=== PATIENT | female | born 2005 | race Caucasian/White ===

== ENCOUNTER 2025-01-08 06:24 | Outpatient (REF) | payer BC, SELFPAY ==
--- NOTE | ~2025-01-08 | US_ITS ---
EXAMINATION: US PELVIS CLINICAL INFORMATION: Lower abdominal pain COMPARISON: None available. TECHNIQUE: Ultrasound of the pelvis is performed using both transabdominal and transvaginal transducers along with Doppler. Transvaginal imaging is performed due to inadequate visualization transabdominally. FINDINGS: Uterus: The uterus is anteverted , anteflexed and measures 7.6 x 3 0.90, 4.7 cm . The double wall endometrial thickness is 0.17 cm. The uterus is smooth in contour and has normal myometrial echogenicity. No visible fibroid. Adnexa: Both ovaries are visualized. Right ovary measures 4.4 x 1.8 x 4.7 cm cm. There is a large midline anechoic cyst measuring 11.4 x 9.2 x 10.1 cm. The exact origin of right ribs and left ovaries not known. Left ovary measures 3.5 x 2.5 x 2.3 . There is a midline anechoic cyst. There is normal color flow to the adnexa. There is no ovarian torsion. There is no pelvic ascites or fluid collection. US/US pelvic complete IMPRESSION: Large midline anechoic pelvic cyst. Its exact origin right versus left ovary is not known. Electronically signed by: Yassine Marie MD 01/08/2025 03:21 PM EDT
--- OUTSIDE RECORDS SUMMARY | 2025-01-08 06:27 | XMS_ITS | Clinical Summary ---
Author Organization [facility] Address [address] [place] [address] Care Team Providers Care Sandwich Peddler Name Role Phone Ced Agosto MD Primary Care Provider Allergies Active Allergy Reactions Criticality Noted Date Comments Kiwi (Actinidia Chinensis) Other (see comments) Medium 12/12/2020 Pt states her mouth tingled slightly, no other symptoms Medications norgestimate-et hinyl estradioL (ORTHO-CYCLEN, SPRINTEC) 0.25 mg-35 mcg per tabletIndicatio ns:Acne vulgaris Take 1 tablet by mouth daily 28 tablet 12 1 Active ISOtretinoin (ACCUTANE) 40 mg capsuleIndicati ons:Acne vulgaris Take two capsules daily with a meal. Do not take additional Vit A 60 capsule 2 Active Active Problems Problem Noted Date Diagnosed Date Closed nondisplaced fracture of proximal phalanx of left little finger with routine healing 06/09/2016 Social History Tobacco Use Types Packs/Day Years Used Date Smoking Tobacco: Never Smokeless Tobacco: Never Comments Unknown Sex and Gender Information Value Date Recorded Sex Assigned at Not on file Legal Sex Female 1:50 PM EDT Gender Identity Not on file Sexual Orientation Not on file Last Filed Vital Signs Vital Sign Reading Time Taken Comments Blood Pressure - - Pulse - - Temperature - - Respiratory Rate - - Oxygen Saturation - - Inhaled Oxygen Concentration - - Weight 77.1 kg (170 lb) 12/15/2021 2:54 PM EDT Height 179.8 cm (5' 10.8 ) 12/15/2021 2:54 PM ED T Body Mass Index 23.84 12/15/2021 2:54 PM EDT Plan of Treatment Health Maintenance Due Date Last Done Comments HIV Screening 2004 1 Week [facility] [address] [facility] [address] [facility] [address] [facility] 01/16/[address] [facility] 03/17/[address] [facility] 06/15/[address] [facility] 09/25/[address] [facility] 12/12/[address] [facility] 03/12/[address] [facility] 09/08/[address] [facility] 01/12/[address] [facility] 2007 Well Child Check 2007 HPV Vaccines (1 - 3-dose series) 2019 COVID-19 Vaccine (3 - 2023-2 5 season) 2024 01/30/2021, 01/08/2021 Influenza Vaccine (Season Ended) 2025 06/24/2021, 06/15/2020, 10/18/2019, Additional history exists DTaP,Tdap,and Td Vaccines (7 - Td or Tdap) 03/16/2027 03/16/2017, 10/22/2008, 01/03/2006, Additional history exists RSV Vaccine (60+ years old a nd patients) (1 - 1-dose 75+ series) 2079 Hepatitis B Vaccines Completed 06/28/2005, 2004, 2004 Pneumococcal Vaccine: Pediat peg (0-5 Years) and At-Risk Patients (6-50 Years) Completed 10/04/2005, 04/19/2005, 01/29/2005, Additional history exists MMR Vaccines Completed 10/30/2009, 01/03/2006 Varicella Vaccines Completed 10/30/2009, 10/04/2005 Meningococcal Vaccine Completed 03/16/2021, [address] [place] [id number] [address] [address] [employer] OUT OF STATE PPO Care Teams Sandwich Peddler Relationship Specialty Start Date End Date Ced Agosto MD [address] [place] [id number] PCP - General 04/14/17
--- OUTSIDE RECORDS SUMMARY | 2025-01-08 06:27 | XMS_ITS | Clinical Summary ---
Author Organization [facility] Address [address] [place] [phone] Phone Care Team Providers Care Doll Wigs Hackler Name Role Phone Unavailable Primary Care Provider Unavailabl e Allergies Active Allergy Reactions Criticality Noted Date Comments Kiwi Extract Other (see comments) Medium Pt states her mouth tingled slightly, no other symptoms Medications ISOtretinoin 40 MG capsule Take two capsules daily with a meal. Do not take additional Vit A 2 Active Active Problems Problem Noted Date Diagnosed Date Pain in joint, hand 05/27/2016 Other dyspnea and respiratory abnormality 2014 Resolved Problems Problem Noted Date Diagnosed Date Resolved Date and jaundice 02/15/2011 03/16/2021 Immunizations Immunization Administration Dates Next Due DTaP 10/22/2008, 5,01/29/2005,11/27 DTaP / HiB 01/03/2006 DTaP, Unspecified 04/19/2005,01/29/2005,11/28/19 05 H1N1 08/16/2009 HPV Vaccine 9 Valent 09/01/2018,03/16/2017 Hep A, ped/adol 03/16/2021,10/18/2019 Hep B 06/28/2005,2004,2004 HiB 04/19/2005,01/29/2005,2004 IPV 10/22/2008, 6,01/29/2005,11/27 Influenza 06/28/2015, 4,08/16/2013,06/28,07/27/2006 Influenza, injectable, MDCK, preservative free, quadrivalent 06/15/2020 Influenza, injectable, quadr ivalent, preservative free 06/24/2021,10/18/2019,08/21/2018,06/06 MMR 10/30/2009,01/13/2006 Meningococcal B Bexsero 05/16/2023 Meningococcal Conj (Menactra) [id number] 03/16/2021,0 03/16/2017 PPD Test 04/22/2011 Pneumococcal Conjugate 10/04/2005,2004,01/29/2005,11/27 Polio 04/04/2006,2004 Tdap 03/16/2017 Varicella 10/30/2009,10/04/2005 Family History Relation Name Status Comments Other : Drug Allergie s Family member: Mother, Age: 33 Family member: Father, Age: 45 Asthma Family member: Maternal grandmother, Age: High Blood Pressure Family member: Maternal grandfather, Age: Diabetes Mellitus Family member: Maternal grandfather, Age: High Cholesterol Family member: Maternal grandmother, Age: Family member: Maternal grandfather, Age: Mental Illness Family member: Mother, Age: 33 Family member: Maternal grandfather, Age: Social History Tobacco Use Types Packs/Day Years Used Date Smoking Tobacco: Never Smokeless Tobacco: Never Alcohol Use Standard Drinks/Week Comments No 0 (1 standard drink = 0.6 oz pur e alcohol) Hunger/Food Answer Date Recorded In the last 12 months, did y ou or your family ever eat less than you felt you should because there wasn't enough money for food? No 05/16/2023 Stable Housing Answer Date Recorded Are you worried that in the next 2 months you may not have stable housing? No 05/16/2023 Transportation Concerns Answer Date Rec orded In the last 12 months, have you or your family ever had to go without healthcare because you didn't have a way to get there? No 05/16/2023 Hazards in Home Answer Date Recorded Think about the place you li ve. Do you have problems with any of the following? Pests (mice or roaches), mold, no/not working smoke detectors, water leaks, no window guards. No 2022 Financing Utilities Answer Date Recorde d In the last 12 months, has t he electric, gas, oil, or water company threatened to shut off your services in your home? No 05/16/2023 Safety at Home Answer Date Recorded Are you or your family worried about feeling saf e in your home? No 05/16/2023 Outside Support Answer Date Recorded Do you feel that you need mo re support from other people or programs to help you care for yourself or your family? No 05/16/2023 Understanding Health Concerns Answer Da te Recorded Do you need help understandi ng your or your child's healthcare needs (diagnosis, medications, plan, etc.)? No 05/16/2023 Financing Health Concerns Answer Date R ecorded In the last 12 months, was t here a time when your child needed to see a doctor or get medications or supplies but could not because of cost? No 05/16/2023 Missing School or Work Answer Date Migue rded Did you or your child miss s chool or work because of a health problem that could have been avoided? No 05/16/2023 Comments No Sex and Gender Information Value Date Recorded Sex Assigned at Not on file Legal Sex Female 6:41 PM EDT Gender Identity Not on file Sexual Orientation Straight 10/18/2019 5: 13 PM EST Last Filed Vital Signs Vital Sign Reading Time Taken Comments Blood Pressure 90/70 05/16/2023 3:19 PM EDT Pulse 102 05/16/2023 3:19 PM EDT Temperature 35 ??C (95 ??F) 10/18/2019 4:24 PM EST Respiratory Rate - - Oxygen Saturation - - Inhaled Oxygen Concentration - - Weight 92.8 kg (204 lb 9.6 oz) 05/16/2023 3:19 P M EDT Height 177 cm (5' 9.69 ) 05/16/2023 3:19 PM EDT Body Mass Index 29.62 05/16/2023 3:19 PM EDT Plan of Treatment Health Maintenance Due Date Last Done Comments Men B Vaccine (2 of 2 - Bexs ero SCDM 2-dose series) 11/16/2023 05/16/2023 Influenza Vaccines (#1) 2024 06/24/20, 06/15/2020, 10/18/2019, Additional history exists COVID-19 Vaccine (3 - 2023-2 5 season) 2024 01/30/2021, 01/08/2021 DTaP,Tdap,and Td Vaccines (7 - Td or Tdap) 03/16/2027 03/16/2017, 10/22/2008, 01/03/2006, Additional history exists Hepatitis B Vaccines Completed 06/28/2005, 2004, 2004 Pneumococcal Vaccine Completed 10/04/2005, 04/19/2005, 01/29/2005, Additional history exists HIB Vaccines Completed 01/03/2006, 03/27, 01/29/2005, Additional history exists IPV Vaccines Completed 10/22/2008, 03/26, 04/04/2006, Additional history exists MMR Vaccines Completed 10/30/2009, 01/13/2006 Varicella Vaccines Completed 10/30/2009, 10/04/2005 HPV Vaccines Completed 09/01/2018, 03/16/2017 Hepatitis A Vaccines Completed 03/16/2021, 10/18/19 Meningococcal Vaccine Completed 03/16/2021, [address] [place] [id number] [facility] [place] [id number] [place]
--- OUTSIDE RECORDS SUMMARY | 2025-01-08 06:27 | XMS_ITS | Encounter Summary ---
Author Organization [facility] Address [address] [place] [phone] Phone Care Team Providers Care Stamp Collector Name Role Phone Ced Agosto MD Primary Care Provider Mary Alicea ble Encounter Details Date Type Department Care Team (Late st Contact Info) Description 02/12/2018 Conversion Encounter [address] [id number] Ced Agosto MD Social History Tobacco Use Types Packs/Day Years Used Date Smoking Tobacco: Never Assessed Comments Unknown Sex and Gender Information Value Date Recorded Sex Assigned at Not on file Legal Sex Female 6:41 PM EDT Gender Identity Not on file Sexual Orientation Straight 10/18/2019 5: 13 PM EST documented as of this encounter Plan of Treatment Not on file documented as of this encounter Visit Diagnoses Not on filedocumented in this encounter Care Teams Stamp Collector Relationship Specialty Start Date End Date Ced Agosto MD PCP - General 02/01/18 04/30/19 documented as of this encounter
--- OUTSIDE RECORDS SUMMARY | 2025-01-08 06:27 | XMS_ITS | Referral Summary ---
Author Organization [facility] Address [address] [place] [address] Care Team Providers Care Client Care Representative Name Role Phone Ced Agosto MD Primary [...] 12/15/2021 2:54 PM EDT Plan of Treatment Not on file Insurance BCBS OUT OF STATE PPO BCBS OUT OF STATE PPO Care Teams Client Care Representative Relationship Specialty Start Date End Date Ced Agosto MD [address] [place] [phone] PCP - General 04/14/17
== END 2025-01-08 06:25 | disposition home or self-care (01) ==
LOC: HO.UMASIMG 06:24
PROVIDERS: Visit Provider Emergency Medicine
DX: R10.30 Lower abdominal pain, unspecified (principal)
CPT/HCPCS: 76856